=== PATIENT | female | born 1995 | race Caucasian/White ===

== ENCOUNTER 2017-11-24 21:52 | Emergency (ER) | payer BC ==
[2017-11-24] MEDS ORDERED: Bupivacaine 0.5% 30 ML SDV INFILT ONE (21:53)
[2017-11-24] MEDS ORDERED: Cephalexin 500 MG Cap PO ONE ×2 (22:01→23:51)
[2017-11-24] MEDS ORDERED: traMADol 50 MG Tab PO ONE (22:01)
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
[2017-11-24] MEDS ORDERED: Lidocaine/EPINEPHrine/Tetracaine Soln 5 ML Each TOP ONE (22:09)
[2017-11-24] MEDS ORDERED: Ondansetron 8 MG Tab.DIS PO ONE (23:01)
== END 2017-11-25 00:03 | disposition home or self-care (01) ==
LOC: FB.ED 21:52
DX: S31.821A Laceration without foreign body of left buttock, initial encounter (principal); S30.810A Abrasion of lower back and pelvis, initial encounter; F10.129 Alcohol abuse with intoxication, unspecified; V86.52XA Driver of snowmobile injured in nontraffic accident, initial encounter
CPT/HCPCS: 12001; 99282; A9270; 12002

== ENCOUNTER 2019-07-07 06:50 | Emergency (ER) | payer BC ==
[2019-07-07] MEDS ORDERED: Ketorolac 60 MG/2 ML SDV IM ONE (07:10)
[2019-07-07] MEDS ORDERED: Prochlorperazine 10 MG Tab PO ONE (07:10)
[2019-07-07] MEDS ORDERED: Acetaminophen 500 MG Tab PO ONE (07:10)
--- NOTE | 2019-07-07 07:22 | EDM.PDOC ---
ED HPI GENERAL MEDICAL PROBLEM - General Chief Complaint: Headache Stated Complaint: MIGRAINE Time Seen by Provider: 07/07/19 07:00 Source of Information: Reports: Patient History Limitations: Reports: No Limitations - History of Present Illness INITIAL COMMENTS - FREE TEXT/NARRATIVE: Patient presented to the ED because of headache. She at woke up at 4 am because of 9/10 headache, all over, denies any N/V/D no fever or chills or any neck stiffness. She too k 2 aleves with mild relief. - Related Data Allergies Allergy/AdvReac Type Severity Reaction Status Date / Time No Known Allergies Allergy Verified 07/07/19 07:00 Home Meds: Home Meds Norgestrel-Ethinyl Estradiol [Cryselle-28 Tablet] 1 tab PO ASDIRECTED 07/07/19 [ History] Past Medical History - Past Health History Medical/Surgical History: Denies Medical/Surgical History Other HEENT History: [place] tooth removed. Neurological History: Reports: Migraines Social & Family History - Family History Family Medical History: Noncontributory - Tobacco Use Tobacco Use Comment: Patient denies cigarette use. - Caffeine Use Caffeine Use: Reports: None ED ROS GENERAL - Review of Systems Review Of Systems: See Below Constitutional: Reports: No Symptoms HEENT: Reports: No Symptoms Respiratory: Reports: No Symptoms Cardiovascular: Reports: No Symptoms Endocrine: Reports: No Symptoms GI/Abdominal: Reports: No Symptoms : Reports: No Symptoms Musculoskeletal: Reports: No Symptoms Skin: Reports: No Symptoms Neurological: Reports: Headache - Physical Exam Exam: See Below Exam Limited By: No Limitations General Appearance: Alert, No Apparent Distress Ears: Normal External Exam, Normal Canal, Hearing Grossly Normal, Normal TMs Nose: Normal Inspection, Normal Mucosa Throat/Mouth: Normal Inspection, Normal Lips, Normal Teeth Head Exam: Atraumatic, Normocephalic Neck: Normal Inspection, Supple, Non-Tender, Full Range of Motion Respiratory/Chest: No Respiratory Distress, Lungs Clear, Normal Breath Sounds, No Accessory Muscle Use, Chest Non-Tender Cardiovascular: Normal Peripheral Pulses, Regular Rate, Rhythm, No Edema, No Gallop, No JVD, No Murmur, No Rub GI/Abdominal: Normal Bowel Sounds, Soft, Non-Tender, No Organomegaly, No Distention Neuro Exam (Abbreviated): Alert, Oriented, CN II-XII Intact, Normal Cognition, Normal Gait, Normal Reflexes, No Motor/Sensory Deficits Back Exam: Normal Inspection, Full Range of Motion Extremities: Normal Inspection, Normal Range of Motion, Non-Tender Psychiatric: Normal Affect, Normal Mood Skin Exam: Warm, Normal Color Course - Vital Signs Text/Narrative:: Patient want the following meds given: IVF IV tylenol IV toradol IV compazine IV benadryl I told her she doesn't need those medications since she doesn't have any N/V and that she can take oral and IM meds. I did give: Toradol 60 mg IM x1, Tylenol 1000 mg po x1, compazine 10 mg po x1 with significant relief of her headache. Last Recorded V/S: Last Vital Signs Temp 36.5 C 07/07/19 06:50 Pulse 74 07/07/19 06:50 Resp 16 07/07/19 06:50 BP 111/64 07/07/19 06:50 Pulse Ox 100 07/07/19 06:50 - Orders/Labs/Meds Meds: Medications Discontinued Medications Generic Name Dose Route Start Last Admin Trade Name Janene PRN Reason Stop Dose Admin Acetaminophen 1,000 mg 07/07/19 07:10 07/07/19 07:23 Tylenol Extra Strength PO 07/07/19 07:11 1,000 mg ONETIME ONE Administration Ketorolac Tromethamine 60 mg 07/07/19 07:10 07/07/19 07:23 Toradol IM 07/07/19 07:11 60 mg ONETIME ONE Administration Prochlorperazine Maleate 10 mg 07/07/19 07:10 07/07/19 07:23 Compazine PO 07/07/19 07:11 10 mg ONETIME ONE Administration Departure - Departure Time of Disposition: 07:50 Disposition: Home, Self-Care 01 Condition: Good Clinical Impression: Headache - Discharge Information *PRESCRIPTION DRUG MONITORING PROGRAM REVIEWED*: No *COPY OF PRESCRIPTION DRUG MONITORING REPORT IN PATIENT SHELIA: No Instructions: General Headache Without Cause, [id number] Forms: ED Department Discharge Additional Instructions: Please read discharge instructions on headache Take ibuprofen 800 mg with tylenol 1000 mg every 8 hours as needed for headache follow up if symptoms persist or worsens
== END 2019-07-07 08:00 | disposition home or self-care (01) ==
LOC: FB.ED 06:50
DX: R51 Headache (principal)
CPT/HCPCS: 96372; 99283; A9270; J1885; Q0164